=== PATIENT | male | born 1980 | race Caucasian/White ===

== ENCOUNTER 2019-06-08 12:21 | Emergency (ER) | payer SELFPAY ==
[~2019-06-08] VITALS: Ht 167 cm; Wt 59.0 kg
[~2019-06-08 12:21] MED LIST: CEPH500C PO; MIRT15TA8 PO; OMEP20CA12 PO; OSLT75C PO; SCR1T PO; SULF1TAB38 PO
--- OUTSIDE RECORDS SUMMARY | 2019-06-08 12:28 | XMS REPORT | Continuity of Care Document ---
Author Organization Unknown Address Unknown Phone Unavailable Allergies There is no data. Medications There is no data. Problems Date Dx Coded Attending Type Code Diagnosis Diagnosed By 01/20/2008 780.79 MAL AISE AND FATIGUE 01/20/2008 780.79 MAL AISE AND FATIGUE 01/20/2008 780.79 Mal aise And Fatigue 01/20/2008 DENA KNOWLES DO 780.79 Malaise And Fatigue 02/23/2008 296.90 MOO D DISORDER 02/23/2008 780.93 MEM ORY LOSS 02/23/2008 784.0 HEADACHE 02/23/2008 296.90 MOO D DISORDER 02/23/2008 780.93 MEM ORY LOSS 02/23/2008 784.0 HEADACHE 02/23/2008 296.90 MOO D DISORDER 02/23/2008 780.93 Mem ory Loss 02/23/2008 784.0 HEADACHE 02/23/2008 DENA KNOWLES DO 296.90 MOOD DISORDER 02/23/2008 DENA KNOWLES DO 780.93 Memory Loss 02/23/2008 DENA KNOWLES DO 784.0 HEADACHE 08/18/[address] PAIN 08/18/[address] PAIN 08/18/[address] Pain 08/18/2008 DENA KNOWLES DO 786.50 Chest Pain 09/08/2008 535.50 GAS TRITIS UNSPEC 09/08/2008 535.50 GAS TRITIS UNSPEC 09/08/2008 535.50 GAS TRITIS UNSPEC 09/08/2008 DENA KNOWLES DO 535.50 GASTRITIS UNSPEC 10/05/2008 530.81 ESO PHAGEAL REFLUX 10/05/2008 530.81 ESO PHAGEAL REFLUX 10/05/2008 530.81 Eso phageal Reflux 10/05/2008 DENA KNOWLES DO 530.81 Esophageal Reflux 06/25/2009 465.9 UPPE R RESPIRATORY INFECTION 06/25/2009 465.9 UPPE R RESPIRATORY INFECTION 06/25/2009 465.9 Uppe r Respiratory Infection 06/25/2009 DENA KNOWLES DO 465.9 Upper Respiratory Infection 11/02/2009 NODX NO DI AGNOSIS 11/02/2009 NODX NO DI AGNOSIS 11/02/2009 NODX No Di agnosis 11/02/2009 DENA KNOWLES DO NODX No Diagnosis 11/09/2009 386.10 GARCIA TIGO, PERIPHERAL UNSPECIFIED 11/09/2009 386.10 GARCIA TIGO, PERIPHERAL UNSPECIFIED 11/09/2009 386.10 Garcia tigo, Peripheral Unspecified 11/09/2009 DENA KNOWLES DO 386.10 Vertigo, Peripheral Unspecified 12/19/2009 427.89 OTH ER SPECIFIED CARDIAC DYSRHYTHMIAS 12/19/2009 427.89 OTH ER SPECIFIED CARDIAC DYSRHYTHMIAS 12/19/2009 427.89 Oth er Specified Cardiac Dysrhythmias 12/19/2009 DENA KNOWLES DO 427.89 Other Specified Cardiac Dysrhythmias 01/09/2010 780.4 DIZZ INESS AND VERTIGO 01/09/2010 780.4 DIZZ INESS AND VERTIGO 01/09/2010 780.4 Dizz iness And Vertigo 01/09/2010 DENA KNOWLES DO 780.4 Dizziness And Vertigo 03/29/2010 078.11 CON DYLOMA ACUMINATUM 03/29/2010 078.11 CON DYLOMA ACUMINATUM 03/29/2010 078.11 Con dyloma Acuminatum 03/29/2010 DENA KNOWLES DO 078.11 Condyloma Acuminatum 06/11/2011 V05.3 HEP B (ADULT) DX 06/11/2011 V05.4 VARI NANDA DX 06/11/2011 V06.4 MMR DX 06/11/2011 V74.1 TB S CREENING 06/11/2011 V05.3 HEP B (ADULT) DX 06/11/2011 V05.4 VARI NANDA DX 06/11/2011 V06.4 MMR DX 06/11/2011 V74.1 TB S CREENING 06/11/2011 V05.3 Hep B (adult) Dx 06/11/2011 V05.4 Vari nanda Dx 06/11/2011 V06.4 Mmr Dx 06/11/2011 V74.1 Tb S creening 06/11/2011 DENA KNOWLES DO V05.3 Hep B (adult) Dx 06/11/2011 DENA KNOWLES DO V05.4 Varicella Dx 06/11/2011 DENA KNOWLES DO V06.4 Mmr Dx 06/11/2011 DENA KNOWLES DO V74.1 Tb Screening 07/21/2011 V06.1 TDAP DX 07/21/2011 V06.1 TDAP DX 07/21/2011 V06.1 Tdap Dx 07/21/2011 DENA KNOWLES DO V06.1 Tdap Dx 09/24/2011 486 PNEUMO OPAL UNSPECIFIED 09/24/2011 486 PNEUMO OPAL UNSPECIFIED 09/24/2011 486 Pneumo opal Unspecified 09/24/2011 DENA KNOWLES DO 486 Pneumonia Unspecified 05/07/2012 216.9 MOLE /NEVUS - SITE UNSPECIFIED 05/07/2012 216.9 Mole /nevus - Site Unspecified 05/07/2012 DENA KNOWLES DO 216.9 Mole/nevus - Site Unspecified 06/04/2012 307.42 INS OMNIA, PSYCHOPHYSIOLOGICAL 06/04/2012 DENA KONWLES DO 307.42 INSOMNIA, PSYCHOPHYSIOLOGICAL 12/14/2012 DENA KNOWLES DO V04.81 FLU SHOT Procedures Code Description [place] [address] TB T EST INTRADERMAL 02/05/2012 95237 BIOP SY SKIN LESION (SINGLE) 05/07/2012 Results There is no data. Encounters ACCT No. Visit Date/Time Discharge Status Pt. Type Provider Facility Loc./Unit Complaint [id number] 12/14/2012 14:04:00 12/14/2012 23:59: 59 CLS Outpatient DENA KNOWLES DO [id number] 05/07/2012 14:49:00 05/07/2012 23:59: 59 CLS Outpatient [id number] 02/05/2012 13:27:00 02/05/2012 23:59: 59 CLS Outpatient [id number] 06/04/2012 15:38:00 Document Registration 706 02/05/2012 13:58:46 RECURRING
[2019-06-08] MEDS ORDERED: ASPIRIN 81 MG CHEW (CHILDREN'S ASA) PO ONE (12:30)
[2019-06-08 12:39] LABS: BASOPHILS % (AUTO) 0 % (0-10); EOSINOPHILS % (AUTO) 0 % (0-10); HEMATOCRIT 43 % (40-54); HEMOGLOBIN 14.6 G/DL (13.3-17.7); LYMPHOCYTES # (AUTO) 1.9 X 10^3 (1.0-4.0); LYMPHOCYTES % (AUTO) 21 % (12-44); MEAN CORPUSCULAR HEMOGLOBIN 30 PG (25-34); MEAN CORPUSCULAR HGB CONC 34 G/DL (32-36); MEAN CORPUSCULAR VOLUME 88 FL (80-99); MEAN PLATELET VOLUME 9.3 FL (7.4-10.4); MONOCYTES # (AUTO) 0.7 X 10^3 (0.0-1.0); MONOCYTES % (AUTO) 7 % (0-12); NEUTROPHILS # (AUTO) 6.6 X 10^3 (1.8-7.8); NEUTROPHILS % (AUTO) 72 % (42-75); PLATELET COUNT 264 10^3/uL (130-400); RED CELL DISTRIBUTION WIDTH 12.4 % (10.0-14.5); WHITE BLOOD COUNT 9.2 10^3/uL (4.3-11.0)
[2019-06-08 12:50] LABS: PROTHROMBIN TIME PATIENT 13.1 SEC (12.2-14.7)
--- NOTE | 2019-06-08 12:54 | Diagnostic Imaging Report ---
INDICATION: Chest tightness and anxiety. FINDINGS: The lungs are clear. The heart and vessels are normal. There is no effusion or pneumothorax. IMPRESSION: No acute appearing abnormality. Dictated by: Dictated on workstation # [id number]
[2019-06-08 12:56] LABS: ALANINE AMINOTRANSFERASE 18 U/L (0-55); ALBUMIN 4.6 GM/DL (3.2-4.5); ALKALINE PHOSPHATASE 70 U/L (40-136); BILIRUBIN,TOTAL 0.4 MG/DL (0.1-1.0); BUN/CREATININE RATIO 10; CALCIUM 9.1 MG/DL (8.5-10.1); CARBON DIOXIDE 27 MMOL/L (21-32); CHLORIDE 105 MMOL/L (98-107); CREATININE SERUM 1.07 MG/DL (0.60-1.30); GFR ESTIMATED > 60; GLUCOSE 139 MG/DL (70-105); MAGNESIUM 2.2 MG/DL (1.6-2.4); POTASSIUM 3.7 MMOL/L (3.6-5.0); SODIUM 140 MMOL/L (135-145); TOTAL PROTEIN 7.5 GM/DL (6.4-8.2)
[2019-06-08] MEDS ORDERED: hydrOXYzine (VISTARIL/ATARAX) 25 MG capsule/tablet PO ONE (13:00)
--- NOTE | 2019-06-08 13:35 | ED Chest Pain ---
General Chief Complaint: Cardiac/General Problems Stated Complaint: CHEST TIGHTNESS Nursing Triage Note: PT CO OF CHEST TIGHTNESS X1HR. PT STATES LAST TIME THIS HAPPENED IT WAS ANXIETY Nursing Sepsis Screen: No Definite Risk History of Present Illness Date Seen by Provider: Jun 08, 2019 Time Seen by Provider: 12:25 Initial Comments 39-year-old male presents for chest tightness and present for approximately one hour. He had a similar complaints approximately 5 years ago related to anxiety. He denies any associated nausea, vomiting, diaphoresis, or radiating pain. No history of CAD. Under more stress than normal. Denies pain at this time. Timing/Duration: 1 hour Severity/Quality: mild Location: substernal Radiation: no radiation Prior CP/Workup: no prior chest pain ASA po RECOVERY AGENT: No NTG SL RECOVERY AGENT: No Associated Symptoms: denies symptoms Allergies and Home Medications Allergies Coded Allergies: NKANo Known Allergies (Unverified Allergy, Mild, 02/22/09) Home Medications Hydroxyzine Pamoate 25 Mg Capsule, 25 MG PO Q8H PRN for ANXIETY Prescribed by: RONNI BREWER on 06/08/19 1340 Patient Home Medication List Home Medication List Reviewed: Yes Review of Systems Review of Systems Constitutional: no symptoms reported Respiratory: No Symptoms Reported, See HPI; Denies Cough Cardiovascular: See HPI, Chest Pain Psychiatric/Neurological: See HPI, Anxiety All Other Systems Reviewed Negative Unless Noted: Yes Past Vgfwuxi-Lzbdpi-Gxcitr Hx Past Med/Social Hx: Reviewed Nursing Past Med/Soc Hx Patient Social History Alcohol Use: Occasionally Uses Recreational Drug Use: No Smoking Status: Current Everyday Smoker Type Used: Electronic/Vapor Recent Foreign Travel: No Contact w/Someone Who Travel: No Recent Infectious Disease Expo: No Recent Hopitalizations: No (gastric ulcers) Physical Abuse: No Sexual Abuse: No Past Medical History Surgeries: No Respiratory: No Cardiac: No Neurological: No Reproductive Disorders: No Gastrointestinal: Yes (hx of gastric ulcers) Endocrine: No Psychosocial: Yes (panic disorder when a kid) Blood Disorders: No Physical Exam Vital Signs Vital Signs - First Documented 06/08/19 12:25 Temp 36.2 Pulse 108 Resp 18 B/P (MAP) 116/74 (88) Pulse Ox 100 Capillary Refill : Less Than 3 Seconds Height, Weight, BMI Height: '" Weight: lbs. oz. kg; 21.00 BMI Method:Stated General Appearance: No Apparent Distress, Anxious HEENT: PERRL/EOMI, TMs Normal, Normal ENT Inspection, Pharynx Normal Neck: Full Range of Motion, Normal Inspection, Non Tender Respiratory: Chest Non Tender, Lungs Clear, Normal Breath Sounds Cardiovascular: Regular Rate, Rhythm, No Edema, No Murmur, Normal Peripheral Pulses Gastrointestinal: Normal Bowel Sounds, Non Tender, Soft Neurologic/Psychiatric: Alert, Oriented x3, No Motor/Sensory Deficits, Normal Mood/Affect Skin: Normal Color, Warm/Dry Progress/Results/Core Measures Results/Orders Lab Results Laboratory Tests Test 06/08/19 12:30 Range/Units White Blood Count 9.2 4.3-11.0 10^3/uL Red Blood Count 4.84 4.35-5.85 10^6/uL Hemoglobin 14.6 13.3-17.7 G/DL Hematocrit 43 40-54 % Mean Corpuscular Volume 88 80-99 FL Mean Corpuscular Hemoglobin 30 25-34 PG Mean Corpuscular Hemoglobin Concent 34 32-36 G/DL Red Cell Distribution Width 12.4 10.0-14.5 % Platelet Count 264 130-400 10^3/uL Mean Platelet Volume 9.3 7.4-10.4 FL Neutrophils (%) (Auto) 72 42-75 % Lymphocytes (%) (Auto) 21 12-44 % Monocytes (%) (Auto) 7 0-12 % Eosinophils (%) (Auto) 0 0-10 % Basophils (%) (Auto) 0 0-10 % Neutrophils # (Auto) 6.6 1.8-7.8 X 10^3 Lymphocytes # (Auto) 1.9 1.0-4.0 X 10^3 Monocytes # (Auto) 0.7 0.0-1.0 X 10^3 Eosinophils # (Auto) 0.0 0.0-0.3 10^3/uL Basophils # (Auto) 0.0 0.0-0.1 10^3/uL Prothrombin Time 13.1 12.2-14.7 SEC INR Comment 1.0 0.8-1.4 Activated Partial Thromboplast Time 31 24-35 SEC Sodium Level 140 135-145 MMOL/L Potassium Level 3.7 3.6-5.0 MMOL/L Chloride Level 105 98-107 MMOL/L Carbon Dioxide Level 27 21-32 MMOL/L Anion Gap 8 5-14 MMOL/L Blood Urea Nitrogen 11 7-18 MG/DL Creatinine 1.07 0.60-1.30 MG/DL Estimat Glomerular Filtration Rate > 60 BUN/Creatinine Ratio 10 Glucose Level 139 H 70-105 MG/DL Calcium Level 9.1 8.5-10.1 MG/DL Corrected Calcium 8.5-10.1 MG/DL Magnesium Level 2.2 1.6-2.4 MG/DL Total Bilirubin 0.4 0.1-1.0 MG/DL Aspartate Amino Transf (AST/SGOT) 18 5-34 U/L Alanine Aminotransferase (ALT/SGPT) 18 0-55 U/L Alkaline Phosphatase 70 40-136 U/L Myoglobin 24.8 10.0-92.0 NG/ML Troponin I < 0.028 <0.028 NG/ML Total Protein 7.5 6.4-8.2 GM/DL Albumin 4.6 H 3.2-4.5 GM/DL My Orders Orders - RONNI 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 Cbc With Automated Diff (06/08/19 12:28) Magnesium (06/08/19 12:28) Chest 1 View, Ap/Pa Only (06/08/19 12:28) Ekg Tracing (06/08/19 12:28) Comprehensive Metabolic Panel (06/08/19 12:28) Myoglobin Serum (06/08/19 12:28) Protime With Inr (06/08/19 12:28) Partial Thromboplastin Time (06/08/19 12:28) O2 (06/08/19 12:28) Monitor-Rhythm Ecg Trace Only (06/08/19 12:28) Ed Iv/Invasive Line Start (06/08/19 12:28) Troponin I (06/08/19 12:28) Aspirin Chewable Tablet (Baby Aspirin Ch (06/08/19 12:30) Hydroxyzine Cap/Tab (Vistaril) (06/08/19 13:00) Medications Given in ED Current Medications Medications Dose Ordered Sig/Will Route Start Time Stop Time Status Last Admin Dose Admin Aspirin 324 mg ONCE ONCE PO 06/08/19 12:30 06/08/19 12:31 DC 06/08/19 12:36 324 MG Hydroxyzine Pamoate 25 mg ONCE ONCE PO 06/08/19 13:00 06/08/19 13:01 DC 06/08/19 13:14 25 MG Vital Signs/I&O 06/08/19 06/08/19 12:25 13:40 Temp 36.2 Pulse 108 80 Resp 18 18 B/P (MAP) 116/74 (88) 100/61 (88) Pulse Ox 100 100 Blood Pressure Mean: 88 Progress Progress Note : Time: 12:25 Progress Note Patient seen and evaluated, will obtain labs, EKG, chest x-ray and ASA 324 mg. 1300 Patient continues to have no chest pain, will try Vistaril 25 mg orally for anxiety. 1330 Patient reports that there is less anxiety. Labs all WNL and no further chest pain. Discharge instructions and return precautions reviewed. Initial ECG Impression Date: Jun 08, 2019 Initial ECG Impression Time: 12:29 Initial ECG Rate: 96 Initial ECG Rhythm: Normal Sinus Initial ECG Intervals: Normal Initial ECG Intervals OR 140; QRSD 81; QT 338; QTc 428 [place] P 70; QRS 67; T 43 Initial ECG Impression: Normal Initial ECG Comparisson: No Previous ECG Available Diagnostic Imaging Diagonstic Imaging: Xray Plain Films/CT/US/NM/MRI: chest Comments NAME: DONNIE FOSS [facility] REC#: [id number] PT STATUS: REG ER : 1980 PHYSICIAN: RONNI BREWER ADMIT DATE: 06/08/19/ER Draft Date of Exam:06/08/19 CHEST 1 VIEW, AP/PA ONLY INDICATION: Chest tightness and anxiety. FINDINGS: The lungs are clear. The heart and vessels are normal. There is no effusion or pneumothorax. IMPRESSION: No acute appearing abnormality. Dictated on workstation # [id number] Dict: 06/08/19 1253 Trans: 06/08/19 1254 [id number] Interpreted by: ANEUDY WITT Electronically signed by: Reviewed: Reviewed by Me Departure Impression Primary Impression: Anxiety Additional Impression: Chest pain not due to acute coronary syndrome Disposition: 01 HOME, SELF-CARE Condition: Improved Departure-Patient Inst. Decision time for Depature: 13:30 Referrals: [facility] (PCP/Family) Primary Care Physician Patient Instructions: Chest Pain That Is Not Caused by the Heart (DC), Anxiety, Adult (DC) Add. Discharge Instructions: Take Aspirin 81 mg, one daily Establish care with a primary care provider. Follow up, if anxiety is not improving. Use Vistaril every 8 hours, as needed for anxiety. Return to the Emergency Dept for chest pain, difficulty breathing, or new/urgent healthcare problems. All discharge instructions reviewed with patient and/or family. Voiced understanding. Scripts Hydroxyzine Pamoate (Vistaril) 25 Mg Capsule 25 MG PO Q8H PRN for ANXIETY, #21 CAP 0 Refills Prov: RONNI BREWER 06/08/19 RONNI BREWER Jun 08, 2019 13:35
[2019-06-08 13:40] VITALS: BP 100/61
[2019-06-08] MEDS ORDERED: HYDR25CA PO (13:40)
== END 2019-06-08 13:40 | disposition home or self-care (01) ==
LOC: EDUNIT# 12:21 → ER 12:24
DX: F41.9 Anxiety disorder, unspecified (principal); F17.200 Nicotine dependence, unspecified, uncomplicated; Z87.19 Personal history of other diseases of the digestive system
CPT/HCPCS: 36415; 71045; 80053; 83735; 83874; 84484; 85025; 85610; 85730; 93005; 93041